=== PATIENT | female | born 1970 | race Caucasian/White ===

== ENCOUNTER 2016-12-26 17:10 | Emergency (ER) | payer BC ==
[~2016-12-26] VITALS: Ht 175.3 cm; Wt 63.5 kg
--- NOTE | 2016-12-26 17:30 | ED Lower Extremity ---
General Stated Complaint: R FOOT LAC Source: patient, family Exam Limitations: no limitations History of Present Illness Time seen by provider: 17:26 Initial Comments Patient was mowing the grass prior to arrival with a push mower and had backed a lawnmower up to a tile of leaves was lifting the back into the mower into the air and using her foot to kick the leaves into the mower and got her toe to close and clipped her toenail off and feels she has embedded some debris into her toe of her left foot. She did take a Naprosyn prescription strength 2 hours prior to starting mowing because she was having some swelling on the knee. No other significant medical history other then some osteoarthritis. She has an allergy to Bactrim and has no idea the last time she had a tetanus shot. Allergies and Home Medications Allergies Coded Allergies: sulfamethoxazole (Verified Allergy, Unknown, 12/26/16) trimethoprim (Verified Allergy, Unknown, 12/26/16) Home Medications Cephalexin 500 Mg Tablet, 500 MG PO QID for 6 Days, #24 Ref 0 Prescribed by: BENTON ESTRELLA on 12/26/161910 Hydrocodone/Acetaminophen 1 Each Tablet, 1 EACH PO Q6H PRN for PAIN, #30 Ref 0 Prescribed by: BENTON ESTRELLA on 12/26/161910 Polyethylene Glycol 3350 17 Gm Powd.pack, 17 GM PO DAILY PRN PRN for CONSTIPATION-1ST LINE, #1 Ref 1 Prescribed by: BENTON ESTRELLA on 12/26/161910 Constitutional: No chills, No fever EENTM: No ear pain, No eye pain Respiratory: No cough, No short of breath Cardiovascular: No chest pain, No edema Gastrointestinal: No abdominal pain, No constipation Genitourinary: No discharge, No dysuria Musculoskeletal: No back pain, No joint pain Skin: see HPI, No pruritus, No rash Physical Exam Vital Signs Vital Sign - Last 12Hours 12/26/16 17:55 Temp 99.2 Pulse 101 Resp 16 B/P (MAP) 119/75 Capillary Refill : General Appearance: WD/WN, no apparent distress HEENT: normal ENT inspection, pharynx normal Neck: supple, normal inspection Cardiovascular: regular rate, rhythm, no edema, no murmur Respiratory: chest non-tender, lungs clear, normal breath sounds Gastrointestinal: non tender, soft Feet: right foot non-tender, right foot normal inspection, right foot normal range of motion, right foot no evidence of injury, left foot abrasions/ lacerations, left foot bone tenderness, left foot deformity (nail lifted form nailbed), left foot ecchymosis, left foot nail injury, left foot pain, left foot soft tissue tenderness Neurologic/Tendon: normal sensation, normal motor functions, normal tendon functions, responds to pain, no evidence tendon injury Neurologic/Psychiatric: no motor/sensory deficits, alert, oriented x 3 Progress/Results/Core Measures Results/Orders My Orders Orders - BENTON ESTRELLA Foot, Left, 3 Views (12/26/16 17:31) Fentanyl Injection (Sublimaze Injection (12/26/16 17:31) Promethazine Injection (Phenergan Injec (12/26/16 17:45) Dipht,Pertuss(Acell),Tet Adult (Boostrix (12/26/16 17:45) Fentanyl Injection (Sublimaze Injection (12/26/16 18:14) Lidocaine 1% Injection (Xylocaine 1% Inj (12/26/16 18:15) Cephalexin Capsule (Keflex Capsule) (12/26/16 19:00) Rx-Cephalexin Capsule (Rx-Keflex Capsule (12/26/16 19:00) Medications Given in ED Current Medications Medications Dose Ordered Sig/Benito Route Start Time Stop Time Status Last Admin Dose Admin Diphtheria/ Tetanus/Acell Pertussis 0.5 ml ONCE ONCE IM 12/26/16 17:45 12/26/16 17:46 DC 12/26/16 17:49 0.5 ML Lidocaine HCl 20 ml ONCE ONCE INJ 12/26/16 18:15 12/26/16 18:17 DC 12/26/16 18:50 20 ML Promethazine HCl 12.5 mg ONCE ONCE IM 12/26/16 17:45 12/26/16 17:46 DC 12/26/16 17:47 12.5 MG Vital Signs/I&O Vital Sign - Last 12Hours 12/26/16 17:55 Temp 99.2 Pulse 101 Resp 16 B/P (MAP) 119/75 Progress Note : Time: 17:44 Progress Note We'll give her TDAP And some pain meds given x-ray of the foot looking for foreign bodies or fractures. Then we will clean the toenail off and the injuries. She will need antibiotics and follow up outpatient by podiatry or PCP. Toenail base avulsed and henostatic. Will initiate Keflex now and send out pain meds and miralax. Diagnostic Imaging Diagonstic Imaging: Xray Plain Films/CT/US/NM/MRI: other (left foot) Comments Distal phalange of #1 toe non displaced fracture. [facility] [place], [place] NAME: TESS ANGELES [facility] REC#: [id number] PT STATUS: REG ER : 1970 PHYSICIAN: BENTON ESTRELLA MD ADMIT DATE: 12/26/16/ER Draft Date of Exam:12/26/16 FOOT, LEFT, 3 VIEWS INDICATION: Injury to left foot. EXAM: AP, oblique, lateral views of the left foot are obtained. FINDINGS: There is an acute fracture of the first distal phalanx, without significant angulation or displacement. Joint spaces are unremarkable. There is no other bony abnormality seen. IMPRESSION: Acute fracture of the first distal phalanx without significant displacement. No other bony abnormalities. Dictated on workstation # [id number] Dict: 12/26/16 1804 Trans: 12/26/16 1811 [facility] [id number] Interpreted by: KURTIS FERNANDEZ MD Electronically signed by: Reviewed: Reviewed by Me Departure Impression Impression: Primary Impression: Toenail avulsion Qualified Codes: S91.209A - Unspecified open wound of unspecified toe(s) with damage to nail, initial encounter Additional Impression: Fracture of distal phalanx of great toe Qualified Codes: S92.425A - Nondisplaced fracture of distal phalanx of left great toe, initial encounter for closed fracture Disposition: 01 HOME, SELF-CARE Condition: Stable Departure-Patient Inst. Decision time for Depature: 19:05 Referrals: GIOVANNY MELO MD UNKNOWN (PCP) Primary Care Physician Add. Discharge Instructions: You have a distal phalangeal closed fracture that is nondisplaced of your left great toe. This will heal on its own although will need to be splinted against her second toe with tape and where the orthopedic shoe for one week minimal. Keep the wound clean using soap and water. You may dress it with gauze and a light dollop of Vaseline as necessary. You will have pain medicines that may make you drowsy and will make you constipation therefore you'll need to use MiraLAX every day that you're on pain medicines. You also have an antibiotic to be taken 4 times a day by mouth for the next week. He should follow up in 1-2 weeks with your primary care physician to lay eyes on the wound and make sure it 's healing well. If the wound gets bright red, more painful or swollen or you develop a fever, nausea or other worrisome symptoms you should return to the ER or to your primary doctor whichever is appropriate. Scripts Hydrocodone/Acetaminophen (Lorcet Hd 10-325 mg Tablet) 1 Each Tablet 1 EACH PO Q6H Y for PAIN, #30 TAB 0 Refills Prov: BENTON ESTRELLA 12/26/16 Polyethylene Glycol 3350 (Miralax) 17 Gm Powd.pack 17 GM PO DAILY PRN Y for CONSTIPATION-1ST LINE, #1 EACH 1 Refill Prov: BENTON ESTRELLA 12/26/16 Cephalexin (Cephalexin) 500 Mg Tablet 500 MG PO QID for 6 Days, #24 TAB 0 Refills Prov: BENTON ESTRELLA 12/26/16 Work/School Note: Family Work Note Patient Received Medical Care In the Emergency Department On: Dec 26, 2016 Patient Will Be Able to Return to Work/School On: Dec 29, 2016 Patient Restrictions: May return to work as soon as 12/29/16. Keep toe elevated when possible. Copy Copies To 1: GIOVANNY MELO MD, TITUS J Dec 26, 2016 17:30
[2016-12-26] MEDS ORDERED: fentaNYL INJECTION 100 MCG/2 ML AMP IM STA ×2 (17:31→18:14)
[2016-12-26] MEDS ORDERED: TETANUS,DIPTH,PERTUSS P/F (BOOSTRIX) 0.5 ML VIAL IM ONE (17:45)
[2016-12-26] MEDS ORDERED: PROMETHAZINE INJ 25 MG/ML (PHENERGAN) AMP IM ONE (17:45)
--- NOTE | 2016-12-26 18:12 | Diagnostic Imaging Report ---
INDICATION: Injury to left foot. EXAM: AP, oblique, lateral views of the left foot are obtained. FINDINGS: There is an acute fracture of the first distal phalanx, without significant angulation or displacement. Joint spaces are unremarkable. There is no other bony abnormality seen. IMPRESSION: Acute fracture of the first distal phalanx without significant displacement. No other bony abnormalities. Dictated by: Dictated on workstation # [id number]
[2016-12-26] MEDS ORDERED: LIDOCAINE 1% INJ 20 ML (XYLOCAINE) VIAL INJ ONE (18:15)
[2016-12-26] MEDS ORDERED: RX-CEPHALEXIN (KEFLEX) 250 MG CAP PPK#4 PO STA (19:00)
[2016-12-26] MEDS ORDERED: CEPHALEXIN 250 MG (KEFLEX) CAP PO ONE (19:00)
[2016-12-26] MEDS ORDERED: POLY17PO6 PO (19:11)
[2016-12-26] MEDS ORDERED: HYDR-3876 PO (19:11)
[2016-12-26] MEDS ORDERED: CEPH500T PO (19:11)
[2016-12-26 19:27] VITALS: BP 108/62
== END 2016-12-26 19:27 | disposition home or self-care (01) ==
LOC: EDUNIT# 17:10 → ER 17:13
DX: S91.212A Laceration without foreign body of left great toe with damage to nail, initial encounter (principal); S92.425A Nondisplaced fracture of distal phalanx of left great toe, initial encounter for closed fracture; Z23 Encounter for immunization; W28.XXXA Contact with powered lawn mower, initial encounter; Y92.017 Garden or yard in single-family (private) house as the place of occurrence of the external cause; Y99.8 Other external cause status
CPT/HCPCS: 73630; 90471; 90715; 96372; 99283

== ENCOUNTER 2021-12-15 08:45 | Outpatient (RCR) | payer BC ==
[~2021-12-15 08:45] MED LIST: CEPH500T PO; HYDR-3920 PO; POLY17PO6 PO
== END 2021-12-17 | disposition home or self-care (01) ==
PROVIDERS: ATTEND Family Medicine
DX: M54.2 Cervicalgia (principal); M54.50 Low back pain, unspecified

== ENCOUNTER 2022-01-05 08:01 | Outpatient (RCR) | payer OTHER, BC | END 2022-01-16 | disposition home or self-care (01) | PROVIDERS: ATTEND Family Medicine | DX: M54.2 Cervicalgia (principal); M54.50 Low back pain, unspecified ==